=== PATIENT | female | born 1995 | race Two or more races ===

== ENCOUNTER 2021-06-02 06:13 | Inpatient (IN) | payer OTHER ==
[2021-06-02] MEDS: DEXTROSE 5%-LACTATED RINGERS 1,000 ML IV SCH ×2 (08:00→12:50)
[2021-06-02 08:38] VITALS: BMI 41.8
[2021-06-02 08:42] LABS: BASO % 0.2 % (0-2.0); EOS % 0.6 % (0-4.5); HEMATOCRIT 34.5 % (32.4-45.2); HEMOGLOBIN 11.2 GM/dL (10.7-15.3); MCH 27.3 pg (25.7-33.7); MCHC 32.6 g/dl (32.0-36.0); MEAN CELL VOLUME 83.5 fl (80-96); MEAN PLT VOLUME 10.1 fl (7.5-11.1); MONO % 7.2 % (3.8-10.2); PLATELET COUNT 227 10^3/uL (134-434); RBC 4.13 M/mm3 (3.60-5.2); RDW 14.6 % (11.6-15.6); WHITE BLOOD COUNT 10.4 K/mm3 (4.0-10.0)
[2021-06-02 08:58] LABS: CALCIUM 8.7 mg/dL (8.5-10.1)
[2021-06-02 08:59] LABS: BLOOD UREA NITROGEN 11.3 mg/dL (7-18)
[2021-06-02 09:02] LABS: CREATININE 0.5 mg/dL (0.55-1.3); INR 0.93 (0.83-1.09); PROTHROMBIN TIME (PATIENT) 11.3 SEC (9.7-13.0)
[2021-06-02 09:05] LABS: ACTIVATED PTT 29.8 SECONDS (25.2-36.5)
[2021-06-02] MEDS ORDERED: CITRIC ACID/SODIUM CITRATE 30 ML UNIT-DOSE CUP PO ONE (10:00)
[2021-06-02] MEDS ORDERED: ONDANSETRON 4 MG/2 ML VIAL IVPUSH PRN (10:28)
[2021-06-02] MEDS ORDERED: morphine SULFATE/PF 0.5 MG/ML (2cc Syringe - QUVA) EP ONE (10:28)
[2021-06-02] MEDS ORDERED: morphine SULFATE/PF 0.5 MG/ML (2cc Syringe - QUVA) ONE (10:33)
[2021-06-02] MEDS ORDERED: ceFAZolin SODIUM 1 GM VIAL ONE (10:34)
[2021-06-02] MEDS ORDERED: ELECTROLYTE-148 SOLN 500 ML IV ONE (10:42)
[2021-06-02] MEDS ORDERED: ELECTROLYTE-148 SOLN 1,000 ML IV SCH (10:45)
[2021-06-02] MEDS ORDERED: OXYTOCIN 10 UNITS/ML VIAL ONE (11:23)
[2021-06-02] MEDS ORDERED: METHYLERGONOVINE MALEATE 0.2 MG/1 ML AMP IM PRN (11:28)
[2021-06-02] MEDS ORDERED: oxyCODONE HCL 5 MG TABLET PO PRN (11:28)
[2021-06-02] MEDS ORDERED: BENZOCAINE 28 GM HEMORRHOIDAL OINTMENT TP PRN (11:29)
[2021-06-02] MEDS ORDERED: BENZOCAINE 20% 57 GM BOTTLE TP PRN (11:29)
[2021-06-02] MEDS ORDERED: WITCH HAZEL 50% (TUCKS) 40 PAD/JAR PAD TP PRN (11:29)
[2021-06-02] MEDS ORDERED: OXYTOCIN 20 UNITS in 0.9% NS 20 UNIT/1,000 ML INFUS.BAG IV SCH (11:30)
[2021-06-02] MEDS ORDERED: OXYTOCIN 20 UNITS in 0.9% NS 20 UNIT/1,000 ML INFUS.BAG IV ONE (13:16)
[2021-06-02] MEDS ORDERED: IBUPROFEN 800 MG/8 ML IJ IVPB ONE (13:25)
[2021-06-02] MEDS: IBUPROFEN 800 MG/8 ML IJ IVPB PRN (13:30)
[2021-06-02] MEDS: FERROUS SO4 325 MG TABLET (FP) PO SCH (17:14)
[2021-06-03] MEDS: IBUPROFEN 800 MG/8 ML IJ IVPB PRN (04:26)
[2021-06-03 08:07] LABS: BASO % 0.3 % (0-2.0); EOS % 0.4 % (0-4.5); HEMATOCRIT 27.7 % (32.4-45.2); HEMOGLOBIN 9.3 GM/dL (10.7-15.3); LYMPH % 14.1 % (8-40); MCH 27.8 pg (25.7-33.7); MCHC 33.7 g/dl (32.0-36.0); MEAN CELL VOLUME 82.4 fl (80-96); MEAN PLT VOLUME 9.2 fl (7.5-11.1); MONO % 8.4 % (3.8-10.2); NEUT % 76.8 % (42.8-82.8); PLATELET COUNT 173 10^3/uL (134-434); RBC 3.37 M/mm3 (3.60-5.2); RDW 14.8 % (11.6-15.6); WHITE BLOOD COUNT 8.8 K/mm3 (4.0-10.0)
[2021-06-03] MEDS: PRENATAL VITAMINS W/ FOLIC ACID TABLET (FP) PO SCH (09:37)
[2021-06-03] MEDS: FERROUS SO4 325 MG TABLET (FP) PO SCH ×2 (09:37→18:40)
[2021-06-03] MEDS: ACETAMINOPHEN 325 MG TABLET (FP) PO PRN ×2 (09:40→18:40)
[2021-06-03] MEDS: IBUPROFEN 600 MG TABLET (FP) PO PRN ×2 (09:41→18:40)
[2021-06-03] MEDS: SIMETHICONE 80 MG TAB.CHEW (FP) PO PRN (09:41)
[2021-06-03] MEDS ORDERED: BISACODYL 10 MG SUPP.RECT RC PRN (11:28)
[2021-06-04] MEDS: IBUPROFEN 600 MG TABLET (FP) PO PRN ×4 (06:15→22:29)
[2021-06-04] MEDS: ACETAMINOPHEN 325 MG TABLET (FP) PO PRN ×4 (06:15→22:29)
[2021-06-04] MEDS: SIMETHICONE 80 MG TAB.CHEW (FP) PO PRN ×4 (06:16→22:29)
[2021-06-04] MEDS: PRENATAL VITAMINS W/ FOLIC ACID TABLET (FP) PO SCH (09:34)
[2021-06-04] MEDS: FERROUS SO4 325 MG TABLET (FP) PO SCH ×2 (09:34→18:25)
[2021-06-04 23:50] VITALS: TEMP 97.7
[2021-06-05] MEDS: SIMETHICONE 80 MG TAB.CHEW (FP) PO PRN ×2 (05:53→10:04)
[2021-06-05] MEDS: IBUPROFEN 600 MG TABLET (FP) PO PRN ×2 (05:53→10:04)
[2021-06-05] MEDS: ACETAMINOPHEN 325 MG TABLET (FP) PO PRN ×2 (05:54→10:05)
[2021-06-05 09:15] LABS: BASO % 0.5 % (0-2.0); EOS % 1.4 % (0-4.5); HEMATOCRIT 29.7 % (32.4-45.2); HEMOGLOBIN 9.6 GM/dL (10.7-15.3); LYMPH % 19.8 % (8-40); MCH 27.5 pg (25.7-33.7); MCHC 32.3 g/dl (32.0-36.0); MEAN PLT VOLUME 9.2 fl (7.5-11.1); MONO % 7.9 % (3.8-10.2); NEUT % 70.4 % (42.8-82.8); PLATELET COUNT 202 10^3/uL (134-434); RBC 3.49 M/mm3 (3.60-5.2); WHITE BLOOD COUNT 8.1 K/mm3 (4.0-10.0)
[2021-06-05] MEDS: FERROUS SO4 325 MG TABLET (FP) PO SCH (10:04)
[2021-06-05] MEDS: PRENATAL VITAMINS W/ FOLIC ACID TABLET (FP) PO SCH (10:04)
[2021-06-05 10:47] VITALS: BP 109/73; PULSE 71
== END 2021-06-05 12:15 | disposition home or self-care (01) | DRG 540 ==
LOC: JDEL 06:13 → JLDR 06:30 → J3W 14:00
PROVIDERS: ADMIT Obstetrics & Gynecology; ATTEND Obstetrics & Gynecology
PROC: 10D00Z1 Extraction of Products of Conception, Low, Open Approach (ICD-10-PCS; principal; 2021-06-02)
DX: O34.211 Maternal care for low transverse scar from previous cesarean delivery (principal); O99.214 Obesity complicating childbirth; E66.01 Morbid (severe) obesity due to excess calories; O69.81X0 Labor and delivery complicated by cord around neck, without compression, not applicable or unspecified; O77.0 Labor and delivery complicated by meconium in amniotic fluid; Z3A.39 39 weeks gestation of pregnancy; Z37.0 Single live birth
CPT/HCPCS: 36415; 80048; 85025; 85610; 85730; 86780; 86850; 86900; 86901; 88307-TC; C9803; U0003; U0005

== ENCOUNTER 2023-07-23 00:05 | Inpatient (IN) | payer OTHER ==
[2023-07-23] MEDS ORDERED: CITRIC ACID/SODIUM CITRATE 30 ML UNIT-DOSE CUP PO ONE ×2 (00:40→05:32)
[2023-07-23] MEDS ORDERED: ELECTROLYTE-148 SOLN 500 ML IV ONE (00:40)
[2023-07-23] MEDS ORDERED: ELECTROLYTE-148 SOLN 1,000 ML IV SCH (01:10)
[2023-07-23 01:30] VITALS: BMI 41.8
[2023-07-23 02:06] LABS: BASO % 0.3 % (0-2.0); EOS % 0.6 % (0-4.5); HEMATOCRIT 26.3 % (32.4-45.2); HEMOGLOBIN 8.4 GM/dL (10.7-15.3); MCH 22.1 pg (25.7-33.7); MEAN CELL VOLUME 68.9 fl (80-96); MEAN PLT VOLUME 8.1 fl (7.5-11.1); MONO % 8.2 % (3.8-10.2); NEUT % 70.9 % (42.8-82.8); PLATELET COUNT 289 10^3/uL (134-434); RBC 3.82 M/mm3 (3.60-5.2); RDW 17.6 % (11.6-15.6); WHITE BLOOD COUNT 8.3 K/mm3 (4.0-10.0)
[2023-07-23 02:08] LABS: INR 1.02 (0.83-1.09); PROTHROMBIN TIME (PATIENT) 11.8 SEC (9.7-13.0)
[2023-07-23 02:10] LABS: ACTIVATED PTT 31.6 SECONDS (25.2-36.5)
[2023-07-23 02:36] LABS: POTASSIUM 4.1 mmol/L (3.5-5.1)
[2023-07-23 02:37] LABS: CALCIUM 8.4 mg/dL (8.5-10.1)
[2023-07-23 02:38] LABS: BLOOD UREA NITROGEN 9.8 mg/dL (7-18)
[2023-07-23 02:41] LABS: CREATININE 0.5 mg/dL (0.55-1.3)
[2023-07-23] MEDS ORDERED: morphine SULFATE/PF 1 MG/2 ML (2cc Syringe - QUVA) ONE (05:53)
[2023-07-23] MEDS ORDERED: METHYLERGONOVINE MALEATE 0.2 MG/1 ML AMP IM PRN (07:33)
[2023-07-23] MEDS ORDERED: METHYLERGONOVINE MALEATE 0.2 MG/1 ML AMP IM ONE (07:34)
[2023-07-23 07:50] LABS: CORD BASE EXCESS -3.2 mmol/L (0-2); CORD HCO3 23.5 mmHg (20-29); CORD HCO3 25.3 mmHg (20-29); CORD PCO2 47.9 mmHg (30-78); CORD PCO2 65.2 mmHg (30-78); CORD pH 7.206 (7.14-7.44); CORD pH 7.309 (7.14-7.44)
[2023-07-23] MEDS: OXYTOCIN 20 UNITS in 0.9% NS 20 UNIT/1,000 ML INFUS.BAG IV SCH ×2 (08:37→17:13)
[2023-07-23] MEDS ORDERED: OXYTOCIN 20 UNITS in 0.9% NS 20 UNIT/1,000 ML INFUS.BAG IV ONE (08:39)
[2023-07-23] MEDS: ACETAMINOPHEN 1000 MG/100 ML BAG IVPB PRN ×2 (13:48→19:52)
[2023-07-23] MEDS: CEFAZOLIN SODIUM 2 GM in DEXTROSE 5%-WATER 100 ML IVPB SCH ×2 (14:22→22:07)
[2023-07-23] MEDS ORDERED: oxyCODONE HCL 5 MG TABLET PO PRN ×2 (19:34)
[2023-07-23] MEDS: SIMETHICONE 80 MG TAB.CHEW (FP) PO PRN (19:52)
[2023-07-24] MEDS: IBUPROFEN 600 MG TABLET (FP) PO PRN ×4 (00:53→17:02)
[2023-07-24] MEDS: SIMETHICONE 80 MG TAB.CHEW (FP) PO PRN ×5 (00:53→23:20)
[2023-07-24] MEDS: CEFAZOLIN SODIUM 2 GM in DEXTROSE 5%-WATER 100 ML IVPB SCH (06:03)
[2023-07-24 06:51] LABS: BASO % 0.3 % (0-2.0); EOS % 0.7 % (0-4.5); HEMATOCRIT 22.1 % (32.4-45.2); MCH 22.4 pg (25.7-33.7); MCHC 31.6 g/dl (32.0-36.0); MEAN CELL VOLUME 70.8 fl (80-96); MEAN PLT VOLUME 8.5 fl (7.5-11.1); MONO % 8.3 % (3.8-10.2); NEUT % 75.7 % (42.8-82.8); PLATELET COUNT 232 10^3/uL (134-434); RBC 3.13 M/mm3 (3.60-5.2); RDW 17.9 % (11.6-15.6); WHITE BLOOD COUNT 9.1 K/mm3 (4.0-10.0)
[2023-07-24] MEDS ORDERED: BISACODYL 10 MG SUPP.RECT RC PRN (07:34)
[2023-07-24] MEDS ORDERED: ENOXAPARIN NA (PORCINE) 40 MG/0.4 ML DISP.SYRIN SQ SCH (10:00)
[2023-07-24] MEDS: ACETAMINOPHEN 325 MG TABLET (FP) PO PRN ×2 (13:41→20:18)
[2023-07-24 21:16] VITALS: RESP 18
[2023-07-25] MEDS: SIMETHICONE 80 MG TAB.CHEW (FP) PO PRN ×4 (06:10→23:49)
[2023-07-25] MEDS: IBUPROFEN 600 MG TABLET (FP) PO PRN ×3 (06:10→20:38)
[2023-07-25] MEDS: ACETAMINOPHEN 325 MG TABLET (FP) PO PRN ×3 (08:02→23:49)
[2023-07-25 08:15] LABS: BASO % 0.5 % (0-2.0); EOS % 0.9 % (0-4.5); HEMATOCRIT 24.1 % (32.4-45.2); HEMOGLOBIN 7.5 GM/dL (10.7-15.3); LYMPH % 17.4 % (8-40); MCH 22.3 pg (25.7-33.7); MCHC 31.1 g/dl (32.0-36.0); MEAN CELL VOLUME 71.7 fl (80-96); MEAN PLT VOLUME 8.9 fl (7.5-11.1); MONO % 7.5 % (3.8-10.2); NEUT % 73.7 % (42.8-82.8); PLATELET COUNT 292 10^3/uL (134-434); RBC 3.36 M/mm3 (3.60-5.2); WHITE BLOOD COUNT 9.7 K/mm3 (4.0-10.0)
[2023-07-25] MEDS: FERROUS SO4 325 MG TABLET (FP) PO SCH (12:53)
[2023-07-26] MEDS: SIMETHICONE 80 MG TAB.CHEW (FP) PO PRN (04:55)
[2023-07-26] MEDS: IBUPROFEN 600 MG TABLET (FP) PO PRN (04:55)
[2023-07-26] MEDS: ACETAMINOPHEN 325 MG TABLET (FP) PO PRN (07:34)
[2023-07-26 08:47] LABS: BASO % 0.7 % (0-2.0); EOS % 1.8 % (0-4.5); HEMATOCRIT 23.9 % (32.4-45.2); HEMOGLOBIN 7.4 GM/dL (10.7-15.3); LYMPH % 24.2 % (8-40); MCHC 31.2 g/dl (32.0-36.0); MEAN CELL VOLUME 70.6 fl (80-96); MEAN PLT VOLUME 8.1 fl (7.5-11.1); MONO % 7.4 % (3.8-10.2); NEUT % 65.9 % (42.8-82.8); PLATELET COUNT 294 10^3/uL (134-434); RBC 3.38 M/mm3 (3.60-5.2); RDW 18.1 % (11.6-15.6); WHITE BLOOD COUNT 8.3 K/mm3 (4.0-10.0)
[2023-07-26] MEDS: FERROUS SO4 325 MG TABLET (FP) PO SCH (10:17)
[2023-07-26 10:27] VITALS: BP 122/76; PULSE 59; TEMP 98
[2023-07-26 10:32] LABS: ANISOCYTOSIS 1+; MACROCYTOSIS 0; OVALOCYTE 1+
[2023-07-26 14:00] LABS: POC NITRAZINE POS
== END 2023-07-26 12:40 | disposition home or self-care (01) | DRG 540 ==
LOC: JLDR 00:05 → J3W 09:00
PROVIDERS: ADMIT Obstetrics & Gynecology; ATTEND Obstetrics & Gynecology
PROC: 10D00Z1 Extraction of Products of Conception, Low, Open Approach (ICD-10-PCS; principal; 2023-07-23)
PROC: 0UT70ZZ Resection of Bilateral Fallopian Tubes, Open Approach (ICD-10-PCS; 2023-07-23)
PROC: 0DNW0ZZ Release Peritoneum, Open Approach (ICD-10-PCS; 2023-07-23)
DX: O34.219 Maternal care for unspecified type scar from previous cesarean delivery (principal); O42.02 Full-term premature rupture of membranes, onset of labor within 24 hours of rupture; O99.02 Anemia complicating childbirth; D64.89 Other specified anemias; N73.6 Female pelvic peritoneal adhesions (postinfective); O99.891 Other specified diseases and conditions complicating pregnancy; Z30.2 Encounter for sterilization; Z3A.37 37 weeks gestation of pregnancy; Z37.0 Single live birth
CPT/HCPCS: 36415; 36600; 80048; 82803; 83986-QW; 85025; 85610; 85730; 86780; 86922; 88302-TC; 88307-TC; 94010